=== PATIENT | female | born 1935 | race African-American/Black ===

== ENCOUNTER 2019-08-28 04:49 | Inpatient (IN) | payer MEDICARE ==
[~2019-08-28] VITALS: Ht 157.5 cm; Wt 56.2 kg
[2019-08-28] MEDS ORDERED: Solu-MEDROL 125mg Inj IVP ONE (05:15)
[2019-08-28] MEDS ORDERED: Albuterol/Ipratropium 3ml neb HHN ONE ×2 (05:15→06:00)
--- NOTE | 2019-08-28 05:15 | NUR ---
ED Nurse Note: RECIEVED PT biba FROM HOME WITH C/O sob FOR PAST 2 HOURS, PT WAS AWAKENED WITH SOB, HAS HX OF ASTHMA, PT IS AWAKE, ALERT AND ORIENTED X 4, DENEIS CHEST PAIN OR ANY PAIN, HAS NOTED SOB AND UNABLE TO COMPLETE SENTENCES, PT IMMEDIATELY GOWNED AND PLACED ON CARDIAC MONITORING, PT DENIES BEING SMOKER, EVER, WILL RESUME CARE ORDERED AND CLOSELY MONITOR.
--- NOTE | 2019-08-28 05:20 | Emergency Room Report ---
History of Present Illness General Chief Complaint: Dyspnea/Respdistress Source: Patient Present Illness HPI Patient is an 84-year-old female presents after increased difficulty with breathing. Patient had onset of symptoms this morning. Prior history of asthma. She denies ever being a smoker. She is normally followed at [facility]. Reports having increased work of breathing since this morning. She had no prior history of cardiac disease. Denies any vomiting or diarrhea. Denies productive cough Allergies: Coded Allergies: No Known Allergies (Unverified , 08/28/19) Patient History Past Medical History: see triage record Last Menstrual Period: n/a Reviewed Nursing Documentation: PMH: Agreed; PSxH: Agreed Nursing Documentation-PMH Hx Hypertension: Yes Hx Asthma: Yes Hx COPD: Yes Review of Systems All Other Systems: negative except mentioned in HPI Physical Exam Vital Signs Date Time Temp Pulse Resp B/P (MAP) Pulse Ox O2 Delivery O2 Flow Rate FiO2 08/28/19 04:51 97.3 103 18 153/96 (115) 90 Room Air 08/28/19 05:14 21 Sp02 EP Interpretation: reviewed, normal General Appearance: normal inspection, well appearing, no apparent distress, alert, GCS 15 Head: atraumatic ENT: normal ENT inspection, hearing grossly normal, normal voice Neck: normal inspection, full range of motion, supple, no bony tend Respiratory: no respiratory distress, accessory muscle use, wheezing Cardiovascular #1: regular rate, rhythm, no edema Gastrointestinal: normal inspection, normal bowel sounds, non tender, soft, no guarding, no hernia Genitourinary: no CVA tenderness Musculoskeletal: normal inspection, back normal, normal range of motion Neurologic: alert, responsive, speech normal, normal inspection Psychiatric: normal inspection, judgement/insight normal, mood/affect normal Medical Decision Making Diagnostic Impression: Primary Impression: Asthma exacerbation ER Course Patient presented for shortness of breath. Differential included but was not limited to anemia, pneumonia, pneumothorax, myocardial infarction, pericardial effusion, congestive heart failure, acidosis . Because of complexity of patient' s case laboratory tests and imaging studies were ordered. Laboratory testing was unremarkable. patient was given breathing treatments as well as IV steroids. She was noted to be initially tachycardic with significant respiratory effort. This somewhat improved over time. Patient continued to have some increased work of breathing. Dr. Coffey was contacted for inpatient management due to need for inpatient monitoring and treatment. Labs Test 08/28/19 04:55 White Blood Count 6.9 K/UL (4.8-10.8) Red Blood Count 4.75 M/UL (4.20-5.40) Hemoglobin 14.3 G/DL (12.0-16.0) Hematocrit 43.2 % (37.0-47.0) Mean Corpuscular Volume 91 FL (80-99) Mean Corpuscular Hemoglobin 30.0 PG (27.0-31.0) Mean Corpuscular Hemoglobin Concent 33.1 G/DL (32.0-36.0) Red Cell Distribution Width 12.9 % (11.6-14.8) Platelet Count 169 K/UL (150-450) Mean Platelet Volume 8.1 FL (6.5-10.1) Neutrophils (%) (Auto) 23.7 % (45.0-75.0) Lymphocytes (%) (Auto) 48.7 % (20.0-45.0) Monocytes (%) (Auto) 8.4 % (1.0-10.0) Eosinophils (%) (Auto) 17.7 % (0.0-3.0) Basophils (%) (Auto) 1.6 % (0.0-2.0) Sodium Level 141 MMOL/L (136-145) Potassium Level 3.4 MMOL/L (3.5-5.1) Chloride Level 104 MMOL/L (98-107) Carbon Dioxide Level 26 MMOL/L (21-32) Anion Gap 11 mmol/L (5-15) Blood Urea Nitrogen 15 mg/dL (7-18) Creatinine 0.8 MG/DL (0.55-1.30) Estimat Glomerular Filtration Rate > 60 mL/min (>60) Glucose Level 108 MG/DL (74-106) Calcium Level 10.9 MG/DL (8.5-10.1) EKG Diagnostic Results Rate: normal Rhythm: NSR ST Segments: no acute changes Last Vital Signs Date Time Temp Pulse Resp B/P (MAP) Pulse Ox O2 Delivery O2 Flow Rate FiO2 08/28/19 05:14 90 21 100 Room Air 21 08/28/19 04:51 97.3 153/96 (115) Status: improved Disposition: ADMITTED INPATIENT Condition: Serious Referrals: NON PHYSICIAN (PCP) Yoni Conner MD Aug 28, 2019 05:20
[2019-08-28 05:45] VITALS: BP 140/65
[2019-08-28 05:56] LABS: BASOPHILS % (AUTO) 1.6 % (0.0-2.0); EOSINOPHILS % (AUTO) 17.7 % (0.0-3.0); HEMATOCRIT 43.2 % (37.0-47.0); HEMOGLOBIN 14.3 G/DL (12.0-16.0); LYMPHOCYTES % (AUTO) 48.7 % (20.0-45.0); MEAN CORPUSCULAR VOLUME 91 FL (80-99); MONOCYTES % (AUTO) 8.4 % (1.0-10.0); NEUTROPHILS % (AUTO) 23.7 % (45.0-75.0); PLATELET COUNT 169 K/UL (150-450); RED BLOOD COUNT 4.75 M/UL (4.20-5.40); RED CELL DISTRIBUTION WIDTH 12.9 % (11.6-14.8); WHITE BLOOD COUNT 6.9 K/UL (4.8-10.8)
[2019-08-28 06:03] LABS: ANION GAP 11 mmol/L (5-15); BLOOD UREA NITROGEN 15 mg/dL (7-18); CALCIUM 10.9 MG/DL (8.5-10.1); CARBON DIOXIDE 26 MMOL/L (21-32); CHLORIDE 104 MMOL/L (98-107); CREATININE 0.8 MG/DL (0.55-1.30); POTASSIUM 3.4 MMOL/L (3.5-5.1); SODIUM 141 MMOL/L (136-145)
[2019-08-28] MEDS ORDERED: SYMBICORT 16010.2 G1 IH (06:06)
[2019-08-28 06:07] LABS: ALANINE AMINOTRANSFERASE 26 U/L (12-78); ALBUMIN 4.1 G/DL (3.4-5.0); ALKALINE PHOSPHATASE 86 U/L (46-116); ASPARTATE AMINO TRANSFERASE 22 U/L (15-37); BILIRUBIN,TOTAL 0.5 MG/DL (0.2-1.0)
--- NOTE | 2019-08-28 07:00 | NUR ---
HAND-OFF: Report given to MACIEJ Whyte.
--- NOTE | 2019-08-28 07:10 | NUR ---
ED Nurse Note: Received pt on bed, awake and alert oriented x4, VSS, on RA, NAD.
[2019-08-28 07:18] VITALS: BP 125/75
--- NOTE | 2019-08-28 07:21 | NUR ---
ED Nurse Note: Flu swabs done; sent to labs.
--- NOTE | 2019-08-28 07:45 | NUR ---
TRANSFER TO FLOOR: Patient transferred to Telemetry Unit as ordered, per Dr. Coffey . Report given to Evangelina WING. Belongings and medications given to receiving nurse. Family and or S/O informed of transfer.
[2019-08-28 08:00] VITALS: BP 119/66
--- NOTE | 2019-08-28 08:00 | NUR ---
NURSE NOTES: Patient stable AOx4. Placed on cardiac monitor technician. No complaints and no s/sx of distress. RR now even and unlabored on 2L NC. Belongings checked. Side rails up x2, call light within reach, bed low and locked.
--- NOTE | 2019-08-28 08:26 | Diagnostic Imaging Report ---
EXAM: XR Chest, 1 View CLINICAL HISTORY: SOB TECHNIQUE: Frontal view of the chest. COMPARISON: No relevant prior studies available. FINDINGS: Lungs: There is moderate hyperinflation consistent with COPD. No consolidating infiltrate is identified. There is mild linear scarring in the left midlung. Pleural space: Unremarkable. No pneumothorax. Heart: Unremarkable. No cardiomegaly. Mediastinum: Unremarkable. Bones/joints: There is a severe S-type thoracolumbar scoliosis. IMPRESSION: COPD without acute infiltrate
[2019-08-28] MEDS: Albuterol/Ipratropium 3ml neb HHN SCH ×4 (11:06→23:04)
[2019-08-28 12:00] VITALS: BP 120/69
--- NOTE | 2019-08-28 12:05 | History & Physical ---
History and Physical History & Physicial seen and examined. Full Dictation completed Rosas Coffey MD Aug 28, 2019 12:05
--- NOTE | 2019-08-28 12:49 | Consultation ---
History of Present Illness General Date patient seen: Aug 28, 2019 Time patient seen: 12:44 Chief Complaint: Dyspnea/Respdistress Referring physician: Rosas Coffey MD Reason for Consultation: SOB Present Illness HPI 84 F lifelong non-smoker h/o asthma and HTN p/w 2 weeks of cough, SOB and wheezing, no FC, no rhin/za, no NVDC. + asthma controlled with Symbicort and PRN albuterol, no prior respiratory hospitalizations per pt. Over the course of the past 2 weeks inhalers were not helping, no OTC cold and flu. She feels her Sx's may have started when a pipe burst near her home. + flu shot. Allergies: Coded Allergies: No Known Allergies (Unverified , 08/28/19) Medication History Miscellaneous Medications Budesonide/Formoterol Fumarate (Symbicort 160-4.5 Mcg Inhaler), 1 PUFF IH, ( Reported) Patient History Limited by: age History Provided By: Patient Healthcare decision maker Resuscitation status Full Code Advanced Directive on File Past Medical/Surgical History Past Medical/Surgical History: (1) HTN (hypertension) (2) Asthma (3) H/O bilateral cataract extraction Family History Family History: (1) No significant family history Social History Social History: (1) No tobacco smoke exposure Review of Systems All Other Systems: negative except mentioned in HPI Physical Exam General Appearance: no apparent distress, cachetic, thin Lines, tubes and drains: peripheral HEENT: normocephalic, atraumatic, anicteric, mucous membranes moist Neck: non-tender, normal alignment, supple, normal inspection Respiratory/Chest: chest wall non-tender, no respiratory distress, no accessory muscle use, expiratory wheezing Cardiovascular/Chest: normal peripheral pulses, normal rate, regular rhythm Abdomen: normal bowel sounds, non tender, soft, no organomegaly, no mass Extremities: other - No CCE Last 24 Hour Vital Signs Date Time Temp Pulse Resp B/P (MAP) Pulse Ox O2 Delivery O2 Flow Rate FiO2 08/28/19 11:25 Nasal Cannula 2.0 08/28/19 11:08 75 22 100 Nasal Cannula 2.0 28 73 22 99 08/28/19 11:06 73 22 99 Nasal Cannula 2.0 28 08/28/19 07:45 98.3 104 24 125/75 100 Room Air 21 08/28/19 07:18 98.3 104 24 125/75 100 Room Air 21 08/28/19 06:08 114 24 100 Room Air 21 110 24 100 08/28/19 05:45 98.3 100 22 140/65 100 Room Air 21 08/28/19 05:15 106 22 Room Air 21 08/28/19 05:14 106 22 100 Room Air 21 90 21 100 08/28/19 04:51 97.3 103 18 153/96 (115) 90 Room Air Laboratory Tests Test 08/28/19 04:55 08/28/19 06:00 White Blood Count 6.9 K/UL (4.8-10.8) Red Blood Count 4.75 M/UL (4.20-5.40) Hemoglobin 14.3 G/DL (12.0-16.0) Hematocrit 43.2 % (37.0-47.0) Mean Corpuscular Volume 91 FL (80-99) Mean Corpuscular Hemoglobin 30.0 PG (27.0-31.0) Mean Corpuscular Hemoglobin Concent 33.1 G/DL (32.0-36.0) Red Cell Distribution Width 12.9 % (11.6-14.8) Platelet Count 169 K/UL (150-450) Mean Platelet Volume 8.1 FL (6.5-10.1) Neutrophils (%) (Auto) 23.7 % (45.0-75.0) L Lymphocytes (%) (Auto) 48.7 % (20.0-45.0) H Monocytes (%) (Auto) 8.4 % (1.0-10.0) Eosinophils (%) (Auto) 17.7 % (0.0-3.0) H Basophils (%) (Auto) 1.6 % (0.0-2.0) Prothrombin Time 10.3 SEC (9.30-11.50) Prothromb Time International Ratio 1.0 (0.9-1.1) Activated Partial Thromboplast Time 26 SEC (23-33) Sodium Level 141 MMOL/L (136-145) Potassium Level 3.4 MMOL/L (3.5-5.1) L Chloride Level 104 MMOL/L (98-107) Carbon Dioxide Level 26 MMOL/L (21-32) Anion Gap 11 mmol/L (5-15) Blood Urea Nitrogen 15 mg/dL (7-18) Creatinine 0.8 MG/DL (0.55-1.30) Estimat Glomerular Filtration Rate > 60 mL/min (>60) Glucose Level 108 MG/DL (74-106) H Calcium Level 10.9 MG/DL (8.5-10.1) H Total Bilirubin 0.5 MG/DL (0.2-1.0) Aspartate Amino Transf (AST/SGOT) 22 U/L (15-37) Alanine Aminotransferase (ALT/SGPT) 26 U/L (12-78) Alkaline Phosphatase 86 U/L (46-116) Troponin I 0.006 ng/mL (0.000-0.056) Total Protein 8.4 G/DL (6.4-8.2) H Albumin 4.1 G/DL (3.4-5.0) Globulin 4.3 g/dL Albumin/Globulin Ratio 1.0 (1.0-2.7) Arterial Blood pH 7.382 (7.350-7.450) Arterial Blood Partial Pressure CO2 38.8 mmHg (35.0-45.0) Arterial Blood Partial Pressure O2 58.0 mmHg (75.0-100.0) L Arterial Blood HCO3 22.5 mmol/L (22.0-26.0) Arterial Blood Oxygen Saturation 90.2 % (95-100) L Arterial Blood Base Excess -2.2 (-2-2) L Guillaume Test Positive Microbiology Date/Time Source Procedure Growth Status 08/28/19 07:20 Nasal Nares - Final Complete 08/28/19 07:20 Nasal Nares - Final Complete Height (Feet): 5 Height (Inches): 2.00 Weight (Pounds): 124 Medications Current Medications Medications (Trade) Dose Ordered Sig/Albin Route PRN Reason Start Time Stop Time Status Last Admin Dose Admin Acetaminophen (Tylenol) 650 mg Q4H PRN ORAL Mild Pain/Temp > 100.5 08/28/19 10:45 09/27/19 10:44 Albuterol/ Ipratropium (Albuterol/ Ipratropium) 3 ml Q4HRT HHN 08/28/19 11:00 09/02/19 10:59 08/28/19 11:06 Azithromycin 500 mg/Dextrose 275 ml @ 275 mls/hr DAILY IV 08/28/19 13:00 09/03/19 09:59 Enoxaparin Sodium (Lovenox) 30 mg EVERY 12 HOURS SUBQ 08/28/19 21:00 09/27/19 20:59 Methylprednisolone Sodium Succinate (Solu-MEDROL) 60 mg EVERY 8 HOURS IVP 08/28/19 14:00 09/27/19 13:59 Pantoprazole (Protonix) 40 mg DAILY ORAL 08/29/19 09:00 09/28/19 08:59 Assessment/Plan Problem List: (1) Asthma exacerbation ICD Codes: J45.901 - Unspecified asthma with (acute) exacerbation SNOMED: 271531445 (2) Asthma ICD Codes: J45.909 - Unspecified asthma, uncomplicated SNOMED: 429549686 (3) HTN (hypertension) ICD Codes: I10 - Essential (primary) hypertension SNOMED: 71962589 Assessment/Plan: Optimize pulmonary hygiene/mobilize as tolerated PRN O2 RTC and PRN HHN's Advair (auto sub for Symbicort) SM 60 IV TID and taper Monitor PEFR Continue Azithro (D1/5), switch to PO Aspiration precautions Monitor volumes and renal function DVT Px: LMWH, would change to daily F/U with PMD and PULM @ [facility] post discharge Freeman Childers MD Aug 28, 2019 12:49
[2019-08-28] MEDS ORDERED: Azithromycin 500 MG in D5W 275 ML IV SCH (13:00)
--- NOTE | 2019-08-28 13:20 | Cardiac Electrophysiology PN ---
Subjective Subjective [id number] Objective Last 24 Hour Vital Signs Date Time Temp Pulse Resp B/P (MAP) Pulse Ox O2 Delivery O2 Flow Rate FiO2 08/28/19 11:25 Nasal Cannula 2.0 08/28/19 11:08 75 22 100 Nasal Cannula 2.0 28 73 22 99 08/28/19 11:06 73 22 99 Nasal Cannula 2.0 28 08/28/19 07:45 98.3 104 24 125/75 100 Room Air 21 08/28/19 07:18 98.3 104 24 125/75 100 Room Air 21 08/28/19 06:08 114 24 100 Room Air 21 110 24 100 08/28/19 05:45 98.3 100 22 140/65 100 Room Air 21 08/28/19 05:15 106 22 Room Air 21 08/28/19 05:14 106 22 100 Room Air 21 90 21 100 08/28/19 04:51 97.3 103 18 153/96 (115) 90 Room Air Laboratory Tests Test 08/28/19 04:55 08/28/19 06:00 White Blood Count 6.9 K/UL (4.8-10.8) Red Blood Count 4.75 M/UL (4.20-5.40) Hemoglobin 14.3 G/DL (12.0-16.0) Hematocrit 43.2 % (37.0-47.0) Mean Corpuscular Volume 91 FL (80-99) Mean Corpuscular Hemoglobin 30.0 PG (27.0-31.0) Mean Corpuscular Hemoglobin Concent 33.1 G/DL (32.0-36.0) Red Cell Distribution Width 12.9 % (11.6-14.8) Platelet Count 169 K/UL (150-450) Mean Platelet Volume 8.1 FL (6.5-10.1) Neutrophils (%) (Auto) 23.7 % (45.0-75.0) L Lymphocytes (%) (Auto) 48.7 % (20.0-45.0) H Monocytes (%) (Auto) 8.4 % (1.0-10.0) Eosinophils (%) (Auto) 17.7 % (0.0-3.0) H Basophils (%) (Auto) 1.6 % (0.0-2.0) Prothrombin Time 10.3 SEC (9.30-11.50) Prothromb Time International Ratio 1.0 (0.9-1.1) Activated Partial Thromboplast Time 26 SEC (23-33) Sodium Level 141 MMOL/L (136-145) Potassium Level 3.4 MMOL/L (3.5-5.1) L Chloride Level 104 MMOL/L (98-107) Carbon Dioxide Level 26 MMOL/L (21-32) Anion Gap 11 mmol/L (5-15) Blood Urea Nitrogen 15 mg/dL (7-18) Creatinine 0.8 MG/DL (0.55-1.30) Estimat Glomerular Filtration Rate > 60 mL/min (>60) Glucose Level 108 MG/DL (74-106) H Calcium Level 10.9 MG/DL (8.5-10.1) H Total Bilirubin 0.5 MG/DL (0.2-1.0) Aspartate Amino Transf (AST/SGOT) 22 U/L (15-37) Alanine Aminotransferase (ALT/SGPT) 26 U/L (12-78) Alkaline Phosphatase 86 U/L (46-116) Troponin I 0.006 ng/mL (0.000-0.056) Total Protein 8.4 G/DL (6.4-8.2) H Albumin 4.1 G/DL (3.4-5.0) Globulin 4.3 g/dL Albumin/Globulin Ratio 1.0 (1.0-2.7) Arterial Blood pH 7.382 (7.350-7.450) Arterial Blood Partial Pressure CO2 38.8 mmHg (35.0-45.0) Arterial Blood Partial Pressure O2 58.0 mmHg (75.0-100.0) L Arterial Blood HCO3 22.5 mmol/L (22.0-26.0) Arterial Blood Oxygen Saturation 90.2 % (95-100) L Arterial Blood Base Excess -2.2 (-2-2) L Guillaume Test Positive Microbiology Date/Time Source Procedure Growth Status 08/28/19 07:20 Nasal Nares - Final Complete 08/28/19 07:20 Nasal Nares - Final Complete Afshin Carter MD Aug 28, 2019 13:20
[2019-08-28] MEDS: Solu-MEDROL 125mg Inj IVP SCH ×2 (14:25→20:54)
[2019-08-28 16:00] VITALS: BP 123/67
--- NOTE | 2019-08-28 17:45 | History and Physical Report ---
DATE OF ADMISSION: 08/28/2019 SOURCE OF INFORMATION: Patient and EMR. HISTORY OF PRESENT ILLNESS: The patient is a pleasant 84-year-old female with a history of asthma. The patient reported worsening of shortness of breath over the last 3 to 4 days. The patient lives by herself. The patient denies fever or chills. Denies any sick contacts. The patient denies any swelling under extremities. Denies any loss of consciousness. PAST MEDICAL HISTORY: Including but not limited to asthma. PAST SURGICAL HISTORY: Multiple extremity bone fractures. MEDICATIONS: Current hospital medications including, but not limited to azithromycin and Solu-Medrol. FAMILY HISTORY: Reviewed and noncontributory. REVIEW OF SYSTEMS: All 12 elements of review of systems reviewed. Pertinent positives and negatives as above. PHYSICAL EXAMINATION: VITAL SIGNS: Blood pressure 130/80, pulse rate 75, respiratory rate 18, pulse rate 114, and temperature 98.3. HEAD AND NECK: Atraumatic and normocephalic. CHEST: Diffuse decrease in the breathing sounds. HEART: S1, S2. Regular rate and rhythm. ABDOMEN: Soft. No organomegaly. MUSCULOSKELETAL: No gross focal motor deficit, positive for decreased muscle mass in all the extremities. NEUROLOGY: Awake, alert, and oriented x3. LABORATORY DATA: Labs dated August 28, 2019 shows WBC 4.7, hemoglobin of 14.3, and platelet count of 169,000. Sodium 141, potassium 3.4, creatinine 0.8, glucose 108, and calcium 10.9. ABG shows a CO2 of 38 and pO2 of 58. ASSESSMENT: 1. Hypoxemic respiratory distress. 2. Chronic metabolic acidosis, compensated. 3. Asthma, chronic, uncontrolled. 4. Hypokalemia. 5. Abnormal blood sugar. 6. Anemia. 7. Hypercalcemia. 8. Bronchitis/upper respiratory tract infection. 9. GI and DVT prophylaxis. PLAN OF CARE: I will start the patient on empiric antibiotic treatment. Continue with the intravenous steroids. Pulmonary, Nephrology, and Cardiology have been notified. I will check a 2D echo. I agree with the telemetry admission. Rosas Coffey M.D. DR: ANA M JOB#: [id number] CC:
--- NOTE | 2019-08-28 19:00 | Consultation ---
DATE OF CONSULTATION: 08/28/2019 CARDIOLOGY CONSULTATION CONSULTING PHYSICIAN: Afshin Carter M.D. REFERRING PHYSICIAN: Rosas Coffey M.D. REASON FOR CONSULTATION: Management of hypertension and shortness of breath. HISTORY OF PRESENT ILLNESS: The patient is a very pleasant 84-year-old lady with a history of hypertension and asthma, who is a lifelong nonsmoker, presented with some shortness of breath, cough, and wheezing. The patient is usually on Symbicort and p.r.n. albuterol at home. The patient came to the emergency room and subsequently admitted for stabilization. At the time of my evaluation, presented with chest pain and shortness of breath is improved. 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 REVIEW OF SYSTEMS: Review of systems was negative other than what was mentioned in the history of present illness. PAST MEDICAL HISTORY: As mentioned above. MEDICATIONS: Per reconciliation. FAMILY HISTORY: Noncontributory. SOCIAL HISTORY: She lives at home. Does not smoke or drink alcohol. PHYSICAL EXAMINATION: VITAL SIGNS: Show blood pressure of 125/75, pulse 75, respirations 18, and temperature 98. HEAD AND NECK: Showed no jugular venous distention. LUNGS: Clear. CARDIOVASCULAR: Shows regular S1 and S2 with no gallop. ABDOMEN: Soft. EXTREMITIES: No pitting edema. LABORATORY DATA: Labs show white count of 6.9, hemoglobin of 14, hematocrit of 43, and platelet count 169,000. Sodium 142, potassium 3.4, BUN of 15, creatinine 0.8, and glucose of 108. First troponin is negative. ASSESSMENT AND PLAN: 1. Shortness of breath, likely due to asthma exacerbation. First troponin is negative. We will completely rule out myocardial infarction protocol and get a brain natriuretic peptide. 2. Hypertension. Start the patient on Norvasc 5 mg daily. 3. Asthma exacerbation, possible pneumonia. On azithromycin and Solu-Medrol per Dr. Childers. Thank you very much for allowing me to participate in the care of this patient. Please do not hesitate to contact me for any questions regarding my evaluation. Afshin Carter M.D. DR: MICHAEL JOB#: [id number] CC:
--- NOTE | 2019-08-28 19:08 | NUR ---
HAND-OFF: Report given to Tiff Hankins. Patient stable. Plan of care endorsed.
--- NOTE | 2019-08-28 19:30 | NUR ---
NURSE NOTES: Received report from MACIEJ Zavaleta. Patient is in bed, awake, alert and responsive. Breathing regular and unlabored with no s/s of SOB noted at this time. Patient denies any pain or discomfort at this time. Patient remains on a 2L NC, with saturations in the 90's. IV access i patent, intact, and saline locked at this time. Bed remains in the lowest position, breaks engaged, and call light is within reach at all times. All other needs attended to, patient remains stable, will continue to monitor.
[2019-08-28] MEDS: Wixela 250/50 Inhaler - 60 dose INH SCH (19:46)
[2019-08-28 20:00] VITALS: BP 121/72
[2019-08-28] MEDS: Enoxaparin 30mg Inj SUBQ SCH (20:54)
--- NOTE | 2019-08-28 21:00 | NUR ---
NURSE NOTES: Per morning RN, is aware of potassium results being 3.4 and no new orders were given. Patient remains stable, will continue to monitor.
[2019-08-29] VITALS: BP 136/53
[2019-08-29] MEDS: Albuterol/Ipratropium 3ml neb HHN SCH ×6 (03:33→23:22)
[2019-08-29 04:00] VITALS: BP 139/62
[2019-08-29] MEDS: Solu-MEDROL 125mg Inj IVP SCH ×3 (05:36→17:47)
[2019-08-29 07:06] LABS: BASOPHILS % (AUTO) 0.5 % (0.0-2.0); EOSINOPHILS % (AUTO) 0.1 % (0.0-3.0); HEMATOCRIT 36.6 % (37.0-47.0); HEMOGLOBIN 12.2 G/DL (12.0-16.0); MEAN CORPUSCULAR VOLUME 90 FL (80-99); MONOCYTES % (AUTO) 1.7 % (1.0-10.0); NEUTROPHILS % (AUTO) 82.8 % (45.0-75.0); PLATELET COUNT 166 K/UL (150-450); RED BLOOD COUNT 4.05 M/UL (4.20-5.40); RED CELL DISTRIBUTION WIDTH 12.6 % (11.6-14.8); WHITE BLOOD COUNT 6.6 K/UL (4.8-10.8)
[2019-08-29 07:26] LABS: ALANINE AMINOTRANSFERASE 15 U/L (12-78); ALBUMIN 3.3 G/DL (3.4-5.0); ALBUMIN/GLOBULIN RATIO 0.9 (1.0-2.7); ALKALINE PHOSPHATASE 64 U/L (46-116); ANION GAP 7 mmol/L (5-15); ASPARTATE AMINO TRANSFERASE 21 U/L (15-37); BILIRUBIN,TOTAL 0.4 MG/DL (0.2-1.0); BLOOD UREA NITROGEN 12 mg/dL (7-18); CALCIUM 10.1 MG/DL (8.5-10.1); CARBON DIOXIDE 27 MMOL/L (21-32); CHLORIDE 107 MMOL/L (98-107); CHOLESTEROL 157 MG/DL (< 200); CREATININE 0.6 MG/DL (0.55-1.30); HDL CHOLESTEROL 75 MG/DL (40-60); POTASSIUM 4.2 MMOL/L (3.5-5.1); SODIUM 141 MMOL/L (136-145); TRIGLYCERIDES 29 MG/DL (30-150)
[2019-08-29] MEDS: Wixela 250/50 Inhaler - 60 dose INH SCH ×2 (07:30→19:25)
--- NOTE | 2019-08-29 07:31 | NUR ---
HAND-OFF: Report given to MACIEJ Max. Patient in stable condition, plan of care endorsed.
[2019-08-29 08:00] VITALS: BP 119/79
--- NOTE | 2019-08-29 08:16 | NUR ---
NURSE NOTES: Received report from MACIEJ Hopper. Pt A/O x4, denies any pain, no s/sx of acute distress. Pt breathing even and unlabored in 2L NC. Bed on lowest position, call light within reach. Will continue to monitor.
[2019-08-29] MEDS: Azithromycin 250mg tab ORAL SCH (09:08)
[2019-08-29] MEDS: Enoxaparin 30mg Inj SUBQ SCH (09:10)
[2019-08-29 12:00] VITALS: BP 121/75
[2019-08-29 16:00] VITALS: BP 116/68
--- NOTE | 2019-08-29 16:45 | Pulmonology Progress Note ---
Assessment/Plan Problems: (1) Asthma exacerbation (2) Asthma (3) HTN (hypertension) Assessment/Plan Optimize pulmonary hygiene/mobilize as tolerated PRN O2 RTC and PRN HHN's Advair (auto sub for Symbicort) Decrease SM to 60 IV BID and taper Monitor PEFR Continue Azithro (D2/5) Aspiration precautions Monitor volumes and renal function DVT Px: LMWH F/U with PMD and PULM @ [facility] post discharge Subjective Allergies: Coded Allergies: No Known Allergies (Unverified , 08/28/19) Subjective AFVSS on 2L Less SOB no cough some wheezing no FC no CP Objective Last 24 Hour Vital Signs Date Time Temp Pulse Resp B/P (MAP) Pulse Ox O2 Delivery O2 Flow Rate FiO2 08/29/19 16:00 2.0 08/29/19 13:10 105 20 99 Nasal Cannula 2.0 28 111 20 97 08/29/19 12:00 2.0 08/29/19 12:00 97.7 81 18 121/75 (90) 100 08/29/19 11:38 103 08/29/19 09:08 71 119/79 08/29/19 09:00 Nasal Cannula 2.0 08/29/19 08:00 2.0 08/29/19 08:00 98.6 71 18 119/79 (92) 100 08/29/19 07:59 116 08/29/19 07:26 87 22 100 Nasal Cannula 2.0 28 96 20 97 08/29/19 07:25 96 Nasal Cannula 2.0 28 08/29/19 04:00 93 08/29/19 04:00 98.0 72 16 139/62 (87) 98 08/29/19 04:00 2.0 08/29/19 03:44 89 18 99 Nasal Cannula 2.0 28 08/29/19 03:33 91 18 97 Nasal Cannula 2.0 28 08/29/19 00:00 2.0 08/29/19 00:00 96 08/29/19 00:00 97.6 70 16 136/53 (80) 97 08/28/19 23:14 86 18 99 Nasal Cannula 2.0 28 08/28/19 23:04 88 18 97 Nasal Cannula 2.0 28 08/28/19 21:00 Nasal Cannula 2.0 08/28/19 20:00 2.0 08/28/19 20:00 97.6 90 16 121/72 (88) 97 08/28/19 20:00 104 08/28/19 19:59 83 18 99 Nasal Cannula 2.0 28 08/28/19 19:49 81 18 95 Nasal Cannula 2.0 28 08/28/19 19:46 95 Nasal Cannula 2.0 28 Intake and Output 08/28/19 08/29/19 19:00 07:00 Intake Total 400 ml Balance 400 ml Intake Oral 400 ml # Voids 2 General Appearance: no acute distress, cachetic HEENT: normocephalic, atraumatic, anicteric, mucous membranes moist Respiratory/Chest: chest wall non-tender, no respiratory distress, no accessory muscle use, expiratory wheezing Cardiovascular: normal peripheral pulses, normal rate, regular rhythm, no JVD Abdomen: normal bowel sounds, soft, non tender, no organomegaly, non distended , no mass Extremities: no cyanosis, no clubbing, no edema Microbiology Date/Time Source Procedure Growth Status 08/28/19 07:20 Nasal Nares - Final Complete 08/28/19 07:20 Nasal Nares - Final Complete Laboratory Tests 08/29/19 05:30: White Blood Count 6.6, Red Blood Count 4.05L, Hemoglobin 12.2, Hematocrit 36.6L , Mean Corpuscular Volume 90, Mean Corpuscular Hemoglobin 30.1, Mean Corpuscular Hemoglobin Concent 33.3, Red Cell Distribution Width 12.6, Platelet Count 166, Mean Platelet Volume 8.5, Neutrophils (%) (Auto) 82.8H, Lymphocytes ( %) (Auto) 15.0L, Monocytes (%) (Auto) 1.7, Eosinophils (%) (Auto) 0.1, Basophils (%) (Auto) 0.5, Sodium Level 141, Potassium Level 4.2, Chloride Level 107, Carbon Dioxide Level 27, Anion Gap 7, Blood Urea Nitrogen 12, Creatinine 0.6, Estimat Glomerular Filtration Rate > 60, Glucose Level 167H, Hemoglobin A1c 5.6, Calcium Level 10.1, Total Bilirubin 0.4, Aspartate Amino Transf (AST/ SGOT) 21, Alanine Aminotransferase (ALT/SGPT) 15, Alkaline Phosphatase 64, Troponin I 0.014, Pro-B-Type Natriuretic Peptide 188H, Total Protein 7.1, Albumin 3.3L, Globulin 3.8, Albumin/Globulin Ratio 0.9L, Triglycerides Level 29L , Cholesterol Level 157, LDL Cholesterol 71, HDL Cholesterol 75H, Cholesterol/ HDL Ratio 2.1L Current Medications Medications (Trade) Dose Ordered Sig/Albin Route PRN Reason Start Time Stop Time Status Last Admin Dose Admin Acetaminophen (Tylenol) 650 mg Q4H PRN ORAL Mild Pain/Temp > 100.5 08/28/19 10:45 09/27/19 10:44 Albuterol/ Ipratropium (Albuterol/ Ipratropium) 3 ml Q4HRT HHN 08/28/19 11:00 09/02/19 10:59 08/29/19 13:12 Amlodipine Besylate (Norvasc) 2.5 mg DAILY ORAL 08/29/19 09:00 09/28/19 08:59 08/29/19 09:08 Azithromycin (Zithromax) 250 mg DAILY ORAL 08/29/19 09:00 09/05/19 08:59 08/29/19 09:08 Enoxaparin Sodium (Lovenox) 30 mg EVERY 12 HOURS SUBQ 08/28/19 21:00 09/27/19 20:59 08/29/19 09:10 Methylprednisolone Sodium Succinate (Solu-MEDROL) 60 mg EVERY 8 HOURS IVP 08/28/19 14:00 09/27/19 13:59 08/29/19 13:29 Pantoprazole (Protonix) 40 mg DAILY ORAL 08/29/19 09:00 09/28/19 08:59 08/29/19 09:08 Salmeterol Xinafoate/ Fluticasone (Advair 250/50 Diskus) 1 puffs BID INH 08/28/19 18:00 09/27/19 17:59 08/29/19 07:30 Freeman Childers MD Aug 29, 2019 16:45
--- NOTE | 2019-08-29 19:35 | NUR ---
NURSE NOTES: Received report from MACIEJ Max. Patient is in bed, awake and responsive. Breathing regular and unlabored with no s/s of SOB noted at this time. Patient is on a 2L NC with saturation of 100%. Patient currently denies any pain or discomfort at this time. IV access intact, patent, and saline locked. Bed remains in the lowest position with breaks engaged and call light within reach at all times. All other needs attended to, patient remains stable, will continue to monitor.
--- NOTE | 2019-08-29 19:46 | NUR ---
HAND-OFF: Report given to MACIEJ Matthew. Pt in stable condition, endorsed plan of care
[2019-08-29 20:00] VITALS: BP 120/70
--- NOTE | 2019-08-29 20:44 | General Progress Note ---
Assessment/Plan Assessment/Plan: S: I am feeling better P: minimal sob. no chest pain. PHYSICAL EXAMINATION:HEAD AND NECK: Atraumatic and normocephalic. CHEST: Diffuse decrease in the breathing sounds. HEART: S1, S2. Regular rate and rhythm. ABDOMEN: Soft. No organomegaly. MUSCULOSKELETAL: No gross focal motor deficit, positive for decreased muscle mass in all the extremities. NEUROLOGY: Awake, alert, and oriented x3. LABORATORY DATA: Labs dated August 28 reviewed ABG shows a CO2 of 38 and pO2 of 58. ASSESSMENT: 1. Hypoxemic respiratory distress. 2. Chronic metabolic acidosis, compensated. 3. Asthma, chronic, uncontrolled. 4. Hypokalemia. 5. Abnormal blood sugar. 6. Anemia. 7. Hypercalcemia. 8. Bronchitis/upper respiratory tract infection. 9. GI and DVT prophylaxis. PLAN OF CARE: notes from Pulmonary, Nephrology, and Cardiology have been reviewed. Subjective Allergies: Coded Allergies: No Known Allergies (Unverified , 08/28/19) Objective Last 24 Hour Vital Signs Date Time Temp Pulse Resp B/P (MAP) Pulse Ox O2 Delivery O2 Flow Rate FiO2 08/29/19 20:00 2.0 08/29/19 20:00 97.5 100 18 120/70 (87) 100 08/29/19 19:37 101 20 99 Nasal Cannula 2.0 28 08/29/19 19:27 98 20 96 Nasal Cannula 2.0 28 08/29/19 19:25 96 Nasal Cannula 2.0 28 08/29/19 16:00 2.0 08/29/19 16:00 100 08/29/19 16:00 98.1 105 20 116/68 (84) 100 08/29/19 13:10 105 20 99 Nasal Cannula 2.0 28 111 20 97 08/29/19 12:00 2.0 08/29/19 12:00 97.7 81 18 121/75 (90) 100 08/29/19 11:38 103 08/29/19 09:08 71 119/79 08/29/19 09:00 Nasal Cannula 2.0 08/29/19 08:00 2.0 08/29/19 08:00 98.6 71 18 119/79 (92) 100 08/29/19 07:59 116 08/29/19 07:26 87 22 100 Nasal Cannula 2.0 28 96 20 97 08/29/19 07:25 96 Nasal Cannula 2.0 28 08/29/19 04:00 93 08/29/19 04:00 98.0 72 16 139/62 (87) 98 08/29/19 04:00 2.0 08/29/19 03:44 89 18 99 Nasal Cannula 2.0 28 08/29/19 03:33 91 18 97 Nasal Cannula 2.0 28 08/29/19 00:00 2.0 08/29/19 00:00 96 08/29/19 00:00 97.6 70 16 136/53 (80) 97 08/28/19 23:14 86 18 99 Nasal Cannula 2.0 28 08/28/19 23:04 88 18 97 Nasal Cannula 2.0 28 08/28/19 21:00 Nasal Cannula 2.0 Intake and Output 08/28/19 08/29/19 19:00 07:00 Intake Total 400 ml Balance 400 ml Intake Oral 400 ml # Voids 2 Laboratory Tests 08/29/19 05:30: White Blood Count 6.6, Red Blood Count 4.05L, Hemoglobin 12.2, Hematocrit 36.6L , Mean Corpuscular Volume 90, Mean Corpuscular Hemoglobin 30.1, Mean Corpuscular Hemoglobin Concent 33.3, Red Cell Distribution Width 12.6, Platelet Count 166, Mean Platelet Volume 8.5, Neutrophils (%) (Auto) 82.8H, Lymphocytes ( %) (Auto) 15.0L, Monocytes (%) (Auto) 1.7, Eosinophils (%) (Auto) 0.1, Basophils (%) (Auto) 0.5, Sodium Level 141, Potassium Level 4.2, Chloride Level 107, Carbon Dioxide Level 27, Anion Gap 7, Blood Urea Nitrogen 12, Creatinine 0.6, Estimat Glomerular Filtration Rate > 60, Glucose Level 167H, Hemoglobin A1c 5.6, Calcium Level 10.1, Total Bilirubin 0.4, Aspartate Amino Transf (AST/ SGOT) 21, Alanine Aminotransferase (ALT/SGPT) 15, Alkaline Phosphatase 64, Troponin I 0.014, Pro-B-Type Natriuretic Peptide 188H, Total Protein 7.1, Albumin 3.3L, Globulin 3.8, Albumin/Globulin Ratio 0.9L, Triglycerides Level 29L , Cholesterol Level 157, LDL Cholesterol 71, HDL Cholesterol 75H, Cholesterol/ HDL Ratio 2.1L Height (Feet): 5 Height (Inches): 2.00 Weight (Pounds): 124 Rosas Coffey MD Aug 29, 2019 20:44
[2019-08-30] VITALS: BP 114/65
[2019-08-30] MEDS: Albuterol/Ipratropium 3ml neb HHN SCH ×6 (03:02→22:39)
[2019-08-30 04:00] VITALS: BP 117/68
--- NOTE | 2019-08-30 07:24 | NUR ---
NURSE NOTES: Received report from Shanique WING. Pt in bed awake and orientedx3 and eating breakfast and resting. Side railx2 up for safety. Call light within easy reach. IV site in right hand 20G SL patent and asymptomatic. Bed in lowest position and locked. On room air and denied SOB. Will continue to plan of care.
--- NOTE | 2019-08-30 07:35 | NUR ---
HAND-OFF: Report given to MACIEJ Franz. Plan of care endorsed, patient remains in stable condition.
[2019-08-30 08:00] VITALS: BP 149/59
[2019-08-30] MEDS: Wixela 250/50 Inhaler - 60 dose INH SCH ×2 (08:03→19:22)
[2019-08-30] MEDS: Azithromycin 250mg tab ORAL SCH (08:44)
[2019-08-30] MEDS: Solu-MEDROL 125mg Inj IVP SCH (08:44)
[2019-08-30] MEDS: Enoxaparin 40mg Inj SUBQ SCH (08:45)
--- NOTE | 2019-08-30 09:06 | NUR ---
NURSE NOTES: Noted O2 sat 98% on room air. But the patient wants to use oxygen for comfort
--- NOTE | 2019-08-30 10:07 | General Progress Note ---
Assessment/Plan Assessment/Plan: S: I am feeling better P: minimal sob. no chest pain. PHYSICAL EXAMINATION:HEAD AND NECK: Atraumatic and normocephalic. CHEST: Diffuse decrease in the breathing sounds. HEART: S1, S2. Regular rate and rhythm. ABDOMEN: Soft. No organomegaly. MUSCULOSKELETAL: No gross focal motor deficit, positive for decreased muscle mass in all the extremities. NEUROLOGY: Awake, alert, and oriented x3. LABORATORY DATA: Labs dated August 29 reviewed Meds: reviewed and reconciled in the chart ASSESSMENT: 1. Hypoxemic respiratory distress. 2. Chronic metabolic acidosis, compensated. 3. Asthma, chronic, uncontrolled. 4. Hypokalemia. 5. Abnormal blood sugar. 6. Anemia. 7. Hypercalcemia. 8. Bronchitis/upper respiratory tract infection. 9. GI and DVT prophylaxis. PLAN OF CARE: notes from Pulmonary, Nephrology, and Cardiology have been reviewed. Titrate steroid down Subjective Allergies: Coded Allergies: No Known Allergies (Unverified , 08/28/19) Objective Last 24 Hour Vital Signs Date Time Temp Pulse Resp B/P (MAP) Pulse Ox O2 Delivery O2 Flow Rate FiO2 08/30/19 09:00 Nasal Cannula 2.0 08/30/19 08:45 107 110/73 08/30/19 08:00 109 08/30/19 08:00 97.5 73 20 149/59 (89) 98 08/30/19 08:00 2.0 08/30/19 07:53 98 Room Air 21 08/30/19 07:53 111 22 99 Room Air 21 109 20 98 08/30/19 04:00 2.0 08/30/19 04:00 98.2 103 18 117/68 (84) 94 08/30/19 04:00 94 08/30/19 03:12 91 18 98 Nasal Cannula 2.0 28 08/30/19 03:02 94 18 96 Nasal Cannula 2.0 28 08/30/19 00:00 98.1 102 19 114/65 (81) 97 08/30/19 00:00 2.0 08/30/19 00:00 90 08/29/19 23:32 89 18 98 Nasal Cannula 2.0 28 08/29/19 23:22 90 18 95 Nasal Cannula 2.0 28 08/29/19 21:00 Nasal Cannula 2.0 08/29/19 20:00 2.0 08/29/19 20:00 100 08/29/19 20:00 97.5 100 18 120/70 (87) 100 08/29/19 19:37 101 20 99 Nasal Cannula 2.0 28 08/29/19 19:27 98 20 96 Nasal Cannula 2.0 28 08/29/19 19:25 96 Nasal Cannula 2.0 28 08/29/19 16:00 2.0 08/29/19 16:00 100 08/29/19 16:00 98.1 105 20 116/68 (84) 100 08/29/19 13:10 105 20 99 Nasal Cannula 2.0 28 111 20 97 08/29/19 12:00 2.0 08/29/19 12:00 97.7 81 18 121/75 (90) 100 08/29/19 11:38 103 Intake and Output 08/29/19 08/30/19 19:00 07:00 Intake Total 640 ml Output Total 2 ml Balance 638 ml Intake Oral 640 ml Output Urine Total 2 ml # Voids 2 3 Height (Feet): 5 Height (Inches): 2.00 Weight (Pounds): 124 Rosas Coffey MD Aug 30, 2019 10:07
[2019-08-30 12:00] VITALS: BP 110/68
--- NOTE | 2019-08-30 12:13 | Cardiac Electrophysiology PN ---
Assessment/Plan Assessment/Plan 1. Shortness of breath, likely due to asthma exacerbation. First troponin is negative. Ruled out myocardial infarction 2. Hypertension. Start the patient on Norvasc 2.5 mg daily. 3. Asthma exacerbation, possible pneumonia. On azithromycin and Solu-Medrol per Dr. Childers. QUYEN RN Subjective Subjective Feeling better. No CP Objective Last 24 Hour Vital Signs Date Time Temp Pulse Resp B/P (MAP) Pulse Ox O2 Delivery O2 Flow Rate FiO2 08/30/19 11:51 96 18 99 Nasal Cannula 2.0 28 94 18 98 08/30/19 09:00 Nasal Cannula 2.0 08/30/19 08:45 107 110/73 08/30/19 08:00 109 08/30/19 08:00 97.5 73 20 149/59 (89) 98 08/30/19 08:00 2.0 08/30/19 07:53 98 Room Air 21 08/30/19 07:53 111 22 99 Room Air 21 109 20 98 08/30/19 04:00 2.0 08/30/19 04:00 98.2 103 18 117/68 (84) 94 08/30/19 04:00 94 08/30/19 03:12 91 18 98 Nasal Cannula 2.0 28 08/30/19 03:02 94 18 96 Nasal Cannula 2.0 28 08/30/19 00:00 98.1 102 19 114/65 (81) 97 08/30/19 00:00 2.0 08/30/19 00:00 90 08/29/19 23:32 89 18 98 Nasal Cannula 2.0 28 08/29/19 23:22 90 18 95 Nasal Cannula 2.0 28 08/29/19 21:00 Nasal Cannula 2.0 08/29/19 20:00 2.0 08/29/19 20:00 100 08/29/19 20:00 97.5 100 18 120/70 (87) 100 08/29/19 19:37 101 20 99 Nasal Cannula 2.0 28 08/29/19 19:27 98 20 96 Nasal Cannula 2.0 28 08/29/19 19:25 96 Nasal Cannula 2.0 28 08/29/19 16:00 2.0 08/29/19 16:00 100 08/29/19 16:00 98.1 105 20 116/68 (84) 100 08/29/19 13:10 105 20 99 Nasal Cannula 2.0 28 111 20 97 Intake and Output 08/29/19 08/30/19 19:00 07:00 Intake Total 640 ml Output Total 2 ml Balance 638 ml Intake Oral 640 ml Output Urine Total 2 ml # Voids 2 3 Microbiology Date/Time Source Procedure Growth Status 08/28/19 07:20 Nasal Nares - Final Complete 08/28/19 07:20 Nasal Nares - Final Complete Objective HEAD AND NECK: Showed no jugular venous distention. LUNGS: Clear. CARDIOVASCULAR: Shows regular S1 and S2 with no gallop. ABDOMEN: Soft. EXTREMITIES: No pitting edema. Afshin Carter MD Aug 30, 2019 12:13
--- NOTE | 2019-08-30 13:22 | Pulmonology Progress Note ---
Assessment/Plan Problems: (1) Asthma exacerbation (2) Asthma (3) HTN (hypertension) Assessment/Plan Optimize pulmonary hygiene/mobilize as tolerated PRN O2 RTC and PRN HHN's Advair (auto sub for Symbicort) Decrease SM to 40 IV BID and taper Monitor PEFR Continue Azithro (D3/5) Aspiration precautions Monitor volumes and renal function DVT Px: LMWH F/U with PMD and PULM @ [facility] post discharge Subjective Allergies: Coded Allergies: No Known Allergies (Unverified , 08/28/19) Subjective AFVSS on 2L Less SOB no cough some wheezing no FC no CP Objective Last 24 Hour Vital Signs Date Time Temp Pulse Resp B/P (MAP) Pulse Ox O2 Delivery O2 Flow Rate FiO2 08/30/19 12:00 93 08/30/19 12:00 2.0 08/30/19 12:00 97.9 99 20 110/68 (82) 100 08/30/19 11:51 96 18 99 Nasal Cannula 2.0 28 94 18 98 08/30/19 09:00 Nasal Cannula 2.0 08/30/19 08:45 107 110/73 08/30/19 08:00 109 08/30/19 08:00 97.5 73 20 149/59 (89) 98 08/30/19 08:00 2.0 08/30/19 07:53 98 Room Air 21 08/30/19 07:53 111 22 99 Room Air 21 109 20 98 08/30/19 04:00 2.0 08/30/19 04:00 98.2 103 18 117/68 (84) 94 08/30/19 04:00 94 08/30/19 03:12 91 18 98 Nasal Cannula 2.0 28 08/30/19 03:02 94 18 96 Nasal Cannula 2.0 28 08/30/19 00:00 98.1 102 19 114/65 (81) 97 08/30/19 00:00 2.0 08/30/19 00:00 90 08/29/19 23:32 89 18 98 Nasal Cannula 2.0 28 08/29/19 23:22 90 18 95 Nasal Cannula 2.0 28 08/29/19 21:00 Nasal Cannula 2.0 08/29/19 20:00 2.0 08/29/19 20:00 100 08/29/19 20:00 97.5 100 18 120/70 (87) 100 08/29/19 19:37 101 20 99 Nasal Cannula 2.0 28 08/29/19 19:27 98 20 96 Nasal Cannula 2.0 28 08/29/19 19:25 96 Nasal Cannula 2.0 28 08/29/19 16:00 2.0 08/29/19 16:00 100 08/29/19 16:00 98.1 105 20 116/68 (84) 100 Intake and Output 08/29/19 08/30/19 19:00 07:00 Intake Total 640 ml Output Total 2 ml Balance 638 ml Intake Oral 640 ml Output Urine Total 2 ml # Voids 2 3 General Appearance: WD/WN, no acute distress HEENT: normocephalic, atraumatic, anicteric, mucous membranes moist Respiratory/Chest: chest wall non-tender, lungs clear, normal breath sounds, no respiratory distress, no accessory muscle use Cardiovascular: normal peripheral pulses, normal rate, regular rhythm Abdomen: normal bowel sounds, soft, non tender, no organomegaly, non distended , no mass Extremities: no cyanosis, no clubbing, no edema Microbiology Date/Time Source Procedure Growth Status 08/28/19 07:20 Nasal Nares - Final Complete 08/28/19 07:20 Nasal Nares - Final Complete Current Medications Medications (Trade) Dose Ordered Sig/Albin Route PRN Reason Start Time Stop Time Status Last Admin Dose Admin Acetaminophen (Tylenol) 650 mg Q4H PRN ORAL Mild Pain/Temp > 100.5 08/28/19 10:45 09/27/19 10:44 Albuterol/ Ipratropium (Albuterol/ Ipratropium) 3 ml Q4HRT HHN 08/28/19 11:00 09/02/19 10:59 08/30/19 11:51 Amlodipine Besylate (Norvasc) 2.5 mg DAILY ORAL 08/29/19 09:00 09/28/19 08:59 08/30/19 08:45 Azithromycin (Zithromax) 250 mg DAILY ORAL 08/29/19 09:00 09/05/19 08:59 08/30/19 08:44 Enoxaparin Sodium (Lovenox) 40 mg DAILY SUBQ 08/30/19 09:00 09/27/19 20:59 08/30/19 08:45 Methylprednisolone Sodium Succinate (Solu-MEDROL) 40 mg BID IVP 08/30/19 18:00 09/27/19 13:59 Pantoprazole (Protonix) 40 mg DAILY ORAL 08/29/19 09:00 09/28/19 08:59 08/30/19 08:43 Salmeterol Xinafoate/ Fluticasone (Advair 250/50 Diskus) 1 puffs BID INH 08/28/19 18:00 09/27/19 17:59 08/30/19 08:03 Freeman Childers MD Aug 30, 2019 13:22
--- NOTE | 2019-08-30 14:20 | NUR ---
CASE MANAGEMENT:REVIEW 84 YR OLD FEMALE BIBA FROM HOME CC; SOB SI: ASTHMA EXACERBATION 97.4 103 18 153/96 90% ON RA K-3.4 IS: HHN X2 AT HOME HHN X1 BY EMRT DUONEB HHN X2 IV SOLUMEDROL IV MAG SULFATE CHEST XRAY : TO TELEMETRY PLAN: 2DECHO 08/30/19 SI: ASTHMA EXACERBATION 97.9 99 20 110/68 100% ON 2L/NC PO2-58.0 IS: IV SOLUMEDROL 40MG BID LOVENOX SQ QD AZITHROMAX PO QD NORVASC PO QD ADVAIR INH BID DUONEB HHN Q4HRS RTC : TELEMETRY STATUS
[2019-08-30 16:00] VITALS: BP 106/75
[2019-08-30] MEDS: Solu-MEDROL 40mg Inj IVP SCH (17:44)
--- NOTE | 2019-08-30 19:30 | NUR ---
HAND-OFF: Report given to Shabana WING. Pt remains stable.
[2019-08-30 20:00] VITALS: BP 119/75
[2019-08-31] VITALS: BP 113/80
[2019-08-31] MEDS: Albuterol/Ipratropium 3ml neb HHN SCH ×3 (03:59→11:20)
[2019-08-31 04:00] VITALS: BP 130/70
--- NOTE | 2019-08-31 06:30 | NUR ---
PT. SLEPT TROUGH WATTERS. ASSIST PT TO THE BTR .NO DISTRESS NOTED.
--- NOTE | 2019-08-31 06:51 | NUR ---
REPORT ENDORSE TO NURSE Elizabeth ARIAS.
--- NOTE | 2019-08-31 07:20 | NUR ---
NURSE NOTES: Received report from Shabana WING. Pt in bed awake and orientedx3. No c/o pain. Eating breakfast in bed. Denied SOB on room air. IV site in right hand 20G SL patent and asymptomatic. Side railsx2 up for safety. Call light within easy reach. Bed in lowest position and locked. Will continue to plan of care.
[2019-08-31 08:00] VITALS: BP 146/91
[2019-08-31 09:11] VITALS: BP 146/91
[2019-08-31] MEDS: Azithromycin 250mg tab ORAL SCH (09:11)
[2019-08-31] MEDS: Enoxaparin 40mg Inj SUBQ SCH (09:11)
[2019-08-31] MEDS: Solu-MEDROL 40mg Inj IVP SCH (09:11)
[2019-08-31] MEDS: Wixela 250/50 Inhaler - 60 dose INH SCH (09:44)
--- NOTE | 2019-08-31 11:07 | Cardiac Electrophysiology PN ---
Assessment/Plan Assessment/Plan 1. Shortness of breath, likely due to asthma exacerbation. Ruled out for myocardial infarction 2. Hypertension.On Norvasc 2.5 mg daily. 3. Asthma exacerbation, possible pneumonia. On azithromycin and Solu-Medrol per Dr. Childers. QUYEN RN Subjective Subjective Feeling better. No CP or SOB Objective Last 24 Hour Vital Signs Date Time Temp Pulse Resp B/P (MAP) Pulse Ox O2 Delivery O2 Flow Rate FiO2 08/31/19 09:11 70 146/91 08/31/19 09:00 Nasal Cannula 2.0 08/31/19 08:00 98.1 18 146/91 (109) 95 08/31/19 07:46 70 18 100 Nasal Cannula 2.0 28 70 18 99 08/31/19 07:46 99 Nasal Cannula 2.0 28 08/31/19 04:00 97.1 17 17 130/70 (90) 98 08/31/19 03:00 91 18 100 Nasal Cannula 2.0 28 88 19 99 08/31/19 00:00 97.3 20 113/80 (91) 98 08/30/19 22:40 92 18 99 Nasal Cannula 2.0 28 87 18 97 08/30/19 21:00 Nasal Cannula 2.0 08/30/19 20:00 99 08/30/19 20:00 97.6 20 119/75 (90) 08/30/19 19:24 95 18 100 Nasal Cannula 2.0 28 92 18 98 08/30/19 19:23 98 Nasal Cannula 2.0 28 08/30/19 16:00 97.6 98 20 106/75 (85) 95 08/30/19 16:00 110 08/30/19 16:00 2.0 08/30/19 15:45 92 18 99 Nasal Cannula 2.0 28 96 18 98 08/30/19 12:00 93 08/30/19 12:00 2.0 08/30/19 12:00 97.9 99 20 110/68 (82) 100 08/30/19 11:51 96 18 99 Nasal Cannula 2.0 28 94 18 98 Intake and Output 08/30/19 08/31/19 19:00 07:00 Intake Total 600 ml Balance 600 ml Intake Oral 600 ml # Voids 4 # Bowel Movements 1 Objective HEAD AND NECK: Showed no jugular venous distention. LUNGS: Clear. CARDIOVASCULAR: Shows regular S1 and S2 with no gallop. ABDOMEN: Soft. EXTREMITIES: No pitting edema. Afshin Carter MD Aug 31, 2019 11:07
--- NOTE | 2019-08-31 11:37 | Pulmonology Progress Note ---
Assessment/Plan Problems: (1) Asthma exacerbation (2) Asthma (3) HTN (hypertension) Assessment/Plan Optimize pulmonary hygiene/mobilize as tolerated PRN O2 RTC and PRN HHN's Advair (auto sub for Symbicort) D/C SM, start Pred 40 and taper Monitor PEFR Continue Azithro (D4/5) Aspiration precautions Monitor volumes and renal function DVT Px: LMWH F/U with PMD and PULM @ [facility] post discharge Subjective Allergies: Coded Allergies: No Known Allergies (Unverified , 08/28/19) Subjective AFVSS on 2L Less SOB no cough some wheezing no FC no CP Objective Last 24 Hour Vital Signs Date Time Temp Pulse Resp B/P (MAP) Pulse Ox O2 Delivery O2 Flow Rate FiO2 08/31/19 09:11 70 146/91 08/31/19 09:00 Nasal Cannula 2.0 08/31/19 08:00 98.1 18 146/91 (109) 95 08/31/19 07:46 70 18 100 Nasal Cannula 2.0 28 70 18 99 08/31/19 07:46 99 Nasal Cannula 2.0 28 08/31/19 04:00 97.1 17 17 130/70 (90) 98 08/31/19 03:00 91 18 100 Nasal Cannula 2.0 28 88 19 99 08/31/19 00:00 97.3 20 113/80 (91) 98 08/30/19 22:40 92 18 99 Nasal Cannula 2.0 28 87 18 97 08/30/19 21:00 Nasal Cannula 2.0 08/30/19 20:00 99 08/30/19 20:00 97.6 20 119/75 (90) 08/30/19 19:24 95 18 100 Nasal Cannula 2.0 28 92 18 98 08/30/19 19:23 98 Nasal Cannula 2.0 28 08/30/19 16:00 97.6 98 20 106/75 (85) 95 08/30/19 16:00 110 08/30/19 16:00 2.0 08/30/19 15:45 92 18 99 Nasal Cannula 2.0 28 96 18 98 08/30/19 12:00 93 08/30/19 12:00 2.0 08/30/19 12:00 97.9 99 20 110/68 (82) 100 08/30/19 11:51 96 18 99 Nasal Cannula 2.0 28 94 18 98 Intake and Output 08/30/19 08/31/19 19:00 07:00 Intake Total 600 ml Balance 600 ml Intake Oral 600 ml # Voids 4 # Bowel Movements 1 General Appearance: WD/WN, no acute distress HEENT: normocephalic, atraumatic, anicteric, mucous membranes moist Respiratory/Chest: chest wall non-tender, lungs clear - but distant, no respiratory distress, no accessory muscle use Cardiovascular: normal peripheral pulses, normal rate, regular rhythm Abdomen: normal bowel sounds, soft, non tender, no organomegaly, non distended , no mass Extremities: no cyanosis, no clubbing, no edema Current Medications Medications (Trade) Dose Ordered Sig/Albin Route PRN Reason Start Time Stop Time Status Last Admin Dose Admin Acetaminophen (Tylenol) 650 mg Q4H PRN ORAL Mild Pain/Temp > 100.5 08/28/19 10:45 09/27/19 10:44 Albuterol/ Ipratropium (Albuterol/ Ipratropium) 3 ml Q4HRT HHN 08/28/19 11:00 09/02/19 10:59 08/31/19 11:20 Amlodipine Besylate (Norvasc) 2.5 mg DAILY ORAL 08/29/19 09:00 09/28/19 08:59 08/31/19 09:11 Azithromycin (Zithromax) 250 mg DAILY ORAL 08/29/19 09:00 09/05/19 08:59 08/31/19 09:11 Enoxaparin Sodium (Lovenox) 40 mg DAILY SUBQ 08/30/19 09:00 09/27/19 20:59 08/31/19 09:11 Methylprednisolone Sodium Succinate (Solu-MEDROL) 40 mg BID IVP 08/30/19 18:00 09/27/19 13:59 08/31/19 09:11 Pantoprazole (Protonix) 40 mg DAILY ORAL 08/29/19 09:00 09/28/19 08:59 08/31/19 09:10 Salmeterol Xinafoate/ Fluticasone (Advair 250/50 Diskus) 1 puffs BID INH 08/28/19 18:00 09/27/19 17:59 08/31/19 09:44 Freeman Childers MD Aug 31, 2019 11:37
--- NOTE | 2019-08-31 14:18 | NUR ---
NOTES: REFERRED FOR SWALLOW EVALUATION BY DR REYES WHO IS ALSO THE PRIMARY MD, SEE FULL REPORT. DYSPHAGIA AND ASPIRATION PNA RISK FACTORS FOR THIS ADVANCED AGED 84 Y.O.F.: ACUTE ISSUES: HYPOXEMIC RESPIRATORY DISTRESS (DIFFUSE AND REDUCED BREATH SOUNDS HAS COPD BUT NO LUNG INFILTRATES ON RECENT CXR), BRONCHITIS/URI, ASTHMA EXACERBATION (3-4 DAYS), RESP RATE 17-19 BPM, SP02 95-100% FI02 28 ON 2 LITERS 02 NC BUT BP IS HIGH. CHRONIC METABOLIC ACIDOSIS, HYPOKALEMIA, ABNORMAL BLOOD SUGAR, AND HYPERCALCEMIA. ON GERD MEDS ? PROPHYLAXIS AND ON RESP MEDS OF ALBUTEROL AND ADVAIR. H/O PER PT WT LOSS (140 TO 120 LB NOW IN LAST 6 MONTHS), COPD, ASTHMA NO POLST/ADVANCE DIRECTIVE (AD) IN PAPER AND NO AD PER ELECTRONIC CHART REGARDING TUBE FEEDING PREFERENCES IF NEEDED. AT HOME ? DIET BUT CURRENTLY ON A [facility] SOFT FINELY CHOPPED DIET AND THIN LIQUIDS WHICH WAS DOWNGRADED FROM REGULAR TEXTURE DIET BY RN, MIN, SINCE PATIENT COUGH WITH SOME MASTICATED SOLIDS TODAY. NO OVERT S/S OF ASPIRATION OR CHOKING WITH PILLS AND WATER PER RN. INTAKE VARIABLE GOOD 50X2, 75-80%. PER PATIENT, CHEWABLE SOLIDS AND PUREED GETS STICK IN HER THROAT AND SHE SOMETIMES WILL COUGH WITH THIN LIQUIDS. HER VOICE IS CLEAR AND HER SPEECH IS USUALLY INTELLIGIBLE BUT LESS PRECISE AT TIMES PER HER DTR. 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 OROMOTOR SKILLS AND DENTITION FUNCTIONAL (EXCEPT MISSING MOLARS) APPEARED TO HAVE 3 SMALL BUMPS ON THE ROOF OF HER MOUTH (? TORUS PALTINUS AND ? IF BONY) VOICE IS CLEAR, COUGH IS WEAK,AND HAS CLAVICULAR BREATHING. RESP RATE 20 BPM AT TIMES WITH SP02 AT 95 TO 100 (BELOW 94 COULD BE A RISK) GIVEN THIN LIQUIDS VIA STRAW SEQUENTIAL SIPS FOR 3 0Z RAMANA SWALLOW PROTOCOL, COULD DRINK MOST OF THE LIQUID SLOWLY W/O OVERT ASPIRATION BUT BECAME SOB AND RESP RATE WENT UP TO 24-26 BPM. GIVEN PUREED TSP, CHEWED 2 SECONDS UNNECESSARILY, SWALLOWED WITH FAIR HYOLARYNGEAL EXCURSION, NO ORAL RESIDUE BUT SWALLOWED AGAIN DUE TO PHARYNGEAL RESIDUE PER PATIENT REPORT. NO OVERT ASPIRATION. GIVEN MASTICATED SOLID (SALTINE CRACKER), CHEWED FOR 7 SECONDS, AND NEEDED THIN LIQUID WASHES X2 TO CLEAR PHARYNGEAL RESIDUE (POINTS TO LARYNX AND BELOW LARYNX AREAS), NO OVERT ASPIRATION. QUESTIONABLE SILENT ASPIRATION RISK, NO NEUROLOGICAL DIAGNOSIS. INTAKE IS SLOW AND VARIABLY GOOD RECOMMENDATIONS: CONSIDER COMPLETING MODIFIED BARIUM SWALLOW STUDY MBSS INPATIENT OR OUTPATIENT IF DC TO FURTHER ASESS SWALLOW, DETERMINE SILENT ASP RISK AND ATTEMPT TRIAL TX IF PO CONTINUES FOR QUALITY OF LIFE, CONSIDER DOWNGRADING TO [facility] SOFT GROUND DIET AND NECTAR THICK LIQUIDS WITH POSTED ASP/REFLUX PRECAUTIONS AND ASSIST WITH MEALS. DIET TYPE (ON REGULAR TYPE NOW) AND HIGH CALORIE SUPPLEMENTS PER RD (SEE REPORT WHEN COMPLETED) TOLD RDANIRUDH, THAT HER DTR WANTS TO KNOW HOW TO HELP HER MOTHER GAIN WEIGHT. SKILLED DYSPHAGIA MANAGEMENT AND TX AND COG-COM EVAL/TX IF NEEDS EDUCATED/TRAINED STAFF, PATIENT, AND HER DTR IN POSTED ASP PRECAUTIONS. CONSIDER ENT CHECK THE THE BUMPS ON THE ROOF OF HER MOUTH (PATIENT DENIES SMOKING HISTORY).
--- NOTE | 2019-08-31 14:33 | General Progress Note ---
Assessment/Plan Assessment/Plan: S: I am feeling better P: minimal sob. no chest pain. dtr at the bed side PHYSICAL EXAMINATION:HEAD AND NECK: Atraumatic and normocephalic. CHEST: Diffuse decrease in the breathing sounds. HEART: S1, S2. Regular rate and rhythm.ABDOMEN: Soft. No organomegaly.MUSCULOSKELETAL: No gross focal motor deficit, positive for decreased muscle mass in all the extremities. NEUROLOGY: Awake, alert, and oriented x3. LABORATORY DATA: Labs dated August 30 reviewed Meds: reviewed and reconciled in the chart ASSESSMENT: 1. Hypoxemic respiratory distress. 2. Chronic metabolic acidosis, compensated. 3. Asthma, chronic, uncontrolled. 4. Hypokalemia. 5. Abnormal blood sugar. 6. Anemia. 7. Hypercalcemia. 8. Bronchitis/upper respiratory tract infection. 9. GI and DVT prophylaxis. PLAN OF CARE: notes from Pulmonary, Nephrology, and Cardiology have been reviewed. Titrate steroid down No need for home O2, as patient passed the walking distance with out O2 supply Subjective Allergies: Coded Allergies: No Known Allergies (Unverified , 08/28/19) Objective Last 24 Hour Vital Signs Date Time Temp Pulse Resp B/P (MAP) Pulse Ox O2 Delivery O2 Flow Rate FiO2 08/31/19 11:30 90 18 100 Nasal Cannula 2.0 28 81 18 98 08/31/19 09:11 70 146/91 08/31/19 09:00 Nasal Cannula 2.0 08/31/19 08:00 98.1 18 146/91 (109) 95 08/31/19 07:46 70 18 100 Nasal Cannula 2.0 28 70 18 99 08/31/19 07:46 99 Nasal Cannula 2.0 28 08/31/19 04:00 97.1 17 17 130/70 (90) 98 08/31/19 03:00 91 18 100 Nasal Cannula 2.0 28 88 19 99 08/31/19 00:00 97.3 20 113/80 (91) 98 08/30/19 22:40 92 18 99 Nasal Cannula 2.0 28 87 18 97 08/30/19 21:00 Nasal Cannula 2.0 08/30/19 20:00 99 08/30/19 20:00 97.6 20 119/75 (90) 08/30/19 19:24 95 18 100 Nasal Cannula 2.0 28 92 18 98 08/30/19 19:23 98 Nasal Cannula 2.0 28 08/30/19 16:00 97.6 98 20 106/75 (85) 95 08/30/19 16:00 110 08/30/19 16:00 2.0 08/30/19 15:45 92 18 99 Nasal Cannula 2.0 28 96 18 98 Intake and Output 08/30/19 08/31/19 19:00 07:00 Intake Total 600 ml Balance 600 ml Intake Oral 600 ml # Voids 4 # Bowel Movements 1 Height (Feet): 5 Height (Inches): 2.00 Weight (Pounds): 124 Rosas Coffey MD Aug 31, 2019 14:33
[2019-08-31] MEDS ORDERED: AUGMENTIN 875-1 EAC1 ORAL (14:45)
[2019-08-31] MEDS ORDERED: PREDNISOLO15 MG/5 M1 ORAL ×2 (15:06→15:11)
[2019-08-31] MEDS ORDERED: PREDNISONE10 MG ORAL (15:10)
[2019-08-31] MEDS ORDERED: PREDNISONE5 MG ORAL (15:19)
[2019-08-31] MEDS ORDERED: NORVASC2.5 MG ORAL (15:21)
[2019-08-31] MEDS ORDERED: ADVAIR 500-501 EACH INH (15:22)
[2019-08-31] MEDS ORDERED: PROAIR HFA8.5 GM INH (15:22)
--- NOTE | 2019-08-31 15:40 | NUR ---
Discharge: Patient is being discharged from medical care. Awake, alert and oriented x3. After care instructions, including referral to community resources were given. Patient verbalized understanding of After care instructions; at this time patient does not request equipment or placement. The patient will be discharged to home. Patient is picked up by her son. Patient signed patient consent in the medical record for patient destination upon discharge. All medical devices such as monitor car operator, IV and ID band were removed. Prescription given to the patient. Patient ambulated out with all personal belongings with steady gait.
--- NOTE | 2019-08-31 16:56 | NUR ---
*-*DISCHARGE PLANNING*-* PATIENT HAS BEEN REFERRED TO: [facility] P: [phone] F: [phone] --------WAITING FOR ACCEPTANCE
--- NOTE | 2019-09-02 11:48 | Discharge Summary ---
Discharge Summary Discharge Summary _ DATE OF ADMISSION: 08/28/2019 DATE OF DISCHARGE: 08/31/2019 DISCHARGED BY: Dr. Coffey REASON FOR ADMISSION: 84 years old female with past medical history of COPD/asthma, hypertension, presented to emergency department with difficulty breathing. Onset started earlier that day. She denied history of smoking . she denies y productive cough . no fever or chills. No chest pain. Upon evaluation patient was tachycardic , pulse oximetry was 90% on room air. Laboratory work-up revealed no leukocytosis, stable hemoglobin ,hematocrit and platelet count. Eosinophil 17.7%. Potassium 3.4. BUN 15, creatinine 0.8. Glucose 108. EKG revealed sinus rhythm, no acute ischemic changes. Patient demonstrated significant respiratory effort while breathing. Patient received nebulizing treatment with bronchodilator and IV steroids and subsequently admitted for further management. CONSULTANTS: paediatric physiotherapist Dr. Horton [facility] COURSE: Patient admitted to telemetry floor. [employer] closely followed. Supplemental oxygen provided and titrated to keep oximetry above 92%. Nebulizing treatment with bronchodilator provided [id number] and as needed. Patient started on Advair inhaler. Patient started in IV steroids with fast tapering to oral prednisone with further gradual tapering. Patient was on empiric antibiotic for total of 5 days . Aspiration precautions maintained. DVT prophylaxis with Lovenox provided. Volumes and cardiorenal parameters were closely monitored. Potassium replaced , and prior to discharge 4.2 . Echocardiogram demonstrated preserved ejection fraction of 65% with no evidence of left ventricular hypertrophy. No evidence of wall motion abnormality. No evidence of pericardial effusion. Right ventricular systolic pressure of 18. Serial troponin were negative. Pro BNP 188. EKG revealed no acute ischemic changes. Patient was ruled out for myocardial infarction . Per cardiology , shortness of breath was likely due to asthma exacerbation . Blood pressure was managed with calcium channel breann. Lipid panel was stable. GI prophylaxis provided. Noted elevated blood glucose . Hemoglobin A1c 5.6. Patient was advised to avoid concentrated sweets. No need for home oxygen . Pulse oximetry was stable on room air while patient was walking . Patient clinically stabilized and was ready for discharge. FINAL DIAGNOSES: Asthma exacerbation Hypertension Chronic asthma , poorly controlled Hypokalemia -resolved Upper respiratory infection Hyperglycemia ([id number]) DISCHARGE MEDICATIONS: See Medication Reconciliation list. DISCHARGE INSTRUCTIONS: Patient was discharged home with home health services. Follow up with primary care provider and supervisor pressing department at [facility] in 1 week after discharge. I have been assigned to dictate discharge summary for this account. I was not involved in the patient's management. Shaye Shook NP Sep 02, 2019 11:48
== END 2019-08-31 15:40 | disposition home health service (06) | DRG 202 ==
LOC: EDBD 04:49 → EDUNIT# 04:49 → EMR 05:08 → 2E 05:57 → EDBEDREQ 07:01
DX: J45.901 Unspecified asthma with (acute) exacerbation (principal); E87.2 Acidosis; J40 Bronchitis, not specified as acute or chronic; J06.9 Acute upper respiratory infection, unspecified; I10 Essential (primary) hypertension; R06.03 Acute respiratory distress; R09.02 Hypoxemia; I45.10 Unspecified right bundle-branch block; E83.52 Hypercalcemia; D64.9 Anemia, unspecified
CPT/HCPCS: 36415; 36600; 71045; 80053; 80061; 82803; 83036; 83880; 84484; 85025; 85610; 85730; 86710; 93306; 94640; 94664; 96365; 96375; 99285; J7620